=== PATIENT | male | born 1955 | race Caucasian/White ===

== ENCOUNTER 2016-08-22 13:18 | Emergency (ER) | payer SELFPAY, OTHER | END 2016-08-22 13:55 | disposition home or self-care (01) | LOC: ER 13:18 | DX: M10.9 Gout, unspecified (principal); M25.562 Pain in left knee; I10 Essential (primary) hypertension; I25.10 Atherosclerotic heart disease of native coronary artery without angina pectoris; E66.9 Obesity, unspecified | CPT/HCPCS: 96372; J1100; J1885 ==

== ENCOUNTER 2016-11-02 16:20 | Emergency (ER) | payer OTHER | END 2016-11-02 23:05 | disposition home or self-care (01) | LOC: ER 16:20 | DX: M10.9 Gout, unspecified (principal); I10 Essential (primary) hypertension; Z79.82 Long term (current) use of aspirin; Z79.899 Other long term (current) drug therapy | CPT/HCPCS: 96372; J1100; J1885 ==